=== PATIENT | female | born 1985 | race Native Hawaiian/Other Pacific Islander ===

== ENCOUNTER 2017-11-28 06:34 | Emergency (ER) | payer SELFPAY ==
--- NOTE | 2017-11-28 08:00 | Cat Scan Report ---
CT HEAD WITHOUT CONTRAST INDICATION: Headache. COMPARISON: None similar at this institution. FINDINGS: Noncontrast head CT demonstrates normal, symmetric ventricles and sulci without acute or recent infarct, hemorrhage, mass effect or midline shift. No abnormal extra-axial fluid collections. Posterior fossa structures and basilar cisterns appear within normal limits. Symmetric eye globes. Slight leftward nasal septal deviation. Slight right maxillary and sphenoid sinus mucosal thickening. Clear remainder imaged paranasal sinuses and mastoid air cells. Intact calvarium. Normal overlying scalp soft tissues. CONCLUSION: No acute intracranial CT abnormality, as described. Thank you for the opportunity to participate in this patient's care.
[2017-11-28] MEDS ORDERED: REGLAN IV ONE (09:04)
[2017-11-28] MEDS ORDERED: NACL 0.9% 1000 ML 1,000 ML IV ONE (09:04)
[2017-11-28] MEDS ORDERED: TORADOL IV ONE (09:04)
[2017-11-28] MEDS ORDERED: DECADRON IV ONE (09:04)
--- NOTE | 2017-11-28 09:07 | Emergency Department Report ---
ED Headache HPI - General Chief Complaint: Headache Stated Complaint: HEADACHE FOR 3 DAYS Time Seen by Provider: 11/28/17 09:03 Source: patient, RN notes reviewed Exam Limitations: no limitations - History of Present Illness Initial Comments: Pt reports that she has had a L side headache x 3 days. She reports light and sound sensitivity as well as nausea/vomiting. She denies any visual changes, congestion, fevers, neck stiffness. LMP 1 week. Timing/Duration: constant, other (3 days) Quality: moderate Head Injury Location: frontal, temporal, parietal Recent Head Trauma: no recent headache/trauma Modifying Factors: improves with: medication. worse with: exposure to light Associated Symptoms: nausea/vomiting. denies: confusion, facial pain, fever/ chills, loss of consciousness, nasal congestion, nasal drainage, seizures, stiff neck, vision changes, weakness Allergies/Adverse Reactions: Allergies No Known Allergies Allergy (Unverified 11/28/17 06:57) Home Medications: Ambulatory Orders Butalb/Acetamin/Caff 50-325-40 [Fioricet] 1 tab PO Q6HR PRN #15 tab 11/28/17 ED Review of Systems ROS: Stated complaint: HEADACHE FOR 3 DAYS Other details as noted in HPI Comment: All other systems reviewed and negative Constitutional: denies: chills, fever Eyes: denies: eye pain, eye discharge, vision change ENT: denies: ear pain, throat pain Respiratory: denies: cough, shortness of breath, wheezing Cardiovascular: denies: chest pain, palpitations Endocrine: no symptoms reported Gastrointestinal: as per HPI, nausea, vomiting. denies: abdominal pain, diarrhea Genitourinary: denies: urgency, dysuria, discharge Musculoskeletal: denies: back pain, joint swelling, arthralgia Skin: denies: rash, lesions Neurological: as per HPI, headache. denies: weakness, paresthesias Psychiatric: denies: anxiety, depression Hematological/Lymphatic: denies: easy bleeding, easy bruising ED Past Medical Hx - Past Medical History Previous Medical History?: No - Surgical History Past Surgical History?: No - Social History Smoking Status: Never Smoker Substance Use Type: None - Medications Home Medications: Home Medications Medication Instructions Recorded Confirmed Last Taken Type Butalb/Acetamin/Caff 50-325-40 1 tab PO Q6HR PRN #15 tab 11/28/17 Unknown Rx [Fioricet] ED Physical Exam - General Limitations: No Limitations General appearance: alert, in no apparent distress - Head Head exam: Present: atraumatic, normocephalic - Eye Eye exam: Present: normal appearance, PERRL Pupils: Present: normal accommodation - ENT ENT exam: Present: normal orophraynx, mucous membranes moist - Neck Neck exam: Present: normal inspection, full ROM. Absent: tenderness, meningismus - Respiratory Respiratory exam: Present: normal lung sounds bilaterally. Absent: respiratory distress, wheezes - Cardiovascular Cardiovascular Exam: Present: regular rate, normal rhythm. Absent: systolic murmur, diastolic murmur, rubs, gallop - GI/Abdominal GI/Abdominal exam: Present: soft, normal bowel sounds. Absent: tenderness, guarding, rebound - Extremities Exam Extremities exam: Present: normal inspection - Back Exam Back exam: Present: normal inspection - Neurological Exam Neurological exam: Present: alert, oriented X3, CN II-XII intact, normal gait, reflexes normal, other (no focal deficits. no meningeal signs. ). Absent: motor sensory deficit - Psychiatric Psychiatric exam: Present: normal affect, normal mood - Skin Skin exam: Present: warm, dry, intact, normal color. Absent: rash ED Course Vital Signs 11/28/17 11/28/17 06:49 10:01 Temperature 99.2 F Pulse Rate 67 Respiratory 16 20 Rate Blood Pressure 141/83 O2 Sat by Pulse 98 Oximetry - Reevaluation(s) Reevaluation #1: 11/28/17 11:34 Pt stable for d/c. ED Medical Decision Making - Radiology Data Radiology results: report reviewed negative head CT - Medical Decision Making Pt presents with sx suggestive of migraine, new onset. CT head negative. GUTIERRES has resolved with migraine cocktail consisting of Toradol, Decadron, and Reglan IV as well as IVF. Pt will follow with PCP. - Differential Diagnosis migraine, tension gutierres, temporal arteritis Critical care attestation.: If time is entered above; I have spent that time in minutes in the direct care of this critically ill patient, excluding procedure time. ED Disposition Clinical Impression: Migraine Qualifiers: Migraine type: unspecified Status migrainosus presence: without status migrainosus Intractability: not intractable Qualified Code(s): G43.909 - Migraine, unspecified, not intractable, without status migrainosus Disposition: TO HOME OR SELFCARE Is pt being admited?: No Condition: Good Instructions: Migraine Headache (ED) Prescriptions: Butalb/Acetamin/Caff 50-325-40 [Fioricet] 1 tab PO Q6HR PRN #15 tab PRN Reason: Headache Referrals: PRIMARY CARE, [Primary Care Provider] - 3-5 Days LUDMILA PONCE MD [Referring] - 3-5 Days Time of Disposition: 11:35 Print Language: MONEGASQUE
[2017-11-28 11:58] VITALS: BP 113/66
== END 2017-11-28 12:00 | disposition home or self-care (01) ==
LOC: ED 06:34
DX: G43.909 Migraine, unspecified, not intractable, without status migrainosus (principal)
CPT/HCPCS: 70450; 96361; 96374; 96375; 99283; J1100; J1885; J2765; J7030